=== PATIENT | female | born 1965 | race African-American/Black ===

== ENCOUNTER 2018-10-21 02:51 | Emergency (ER) | payer BC, OTHER ==
[2018-10-21] MEDS ORDERED: NORMAL SALINE 1000 ML 1,000 ML IV ONE (04:04)
--- NOTE | 2018-10-21 04:06 | ER Document Report ---
ED GI/ - General TRAVEL OUTSIDE OF THE [place] IN LAST 30 DAYS: No <YENI SANTIAGO - Last Filed: 10/21/18 06:36> <JUNIE GERMAN - Last Filed: 10/21/18 08:18> - General Chief Complaint: Abdominal Pain Stated Complaint: ABDOMINAL PAIN Time Seen by Provider: 10/21/18 03:57 Notes: Patient is a 53-year-old female that comes emergency department for chief complaint of abdominal pain, worse in the lower abdomen. Symptoms started several hours ago tonight, she states she vomited from the pain. She denies chest pain, flank pain, fever or chills, dysuria, vaginal bleeding. She states her only medical history is anemia, on iron. She has had 3 C-sections. Denies medical history otherwise. Denies smoking, alcohol, recreational drugs. Daughter at bedside. (YENI SANTIAGO) - Related Data Allergies/Adverse Reactions: No Known Allergies Allergy (Verified 07/22/13 09:31) Past Medical History - General Information source: Patient - Social History Smoking Status: Never Smoker Frequency of alcohol use: None Lives with: Family Family History: Reviewed & Not Pertinent - Past Medical History Cardiac Medical History: Reports: Hx DVT Pulmonary Medical History: Denies: Hx Tuberculosis Past Surgical History: Reports: Hx Section - x3 - Immunizations Hx Diphtheria, Pertussis, Tetanus Vaccination: Yes <YENI SANTIAGO - Last Filed: 10/21/18 06:36> Review of Systems - Review of Systems Constitutional: No symptoms reported EENT: No symptoms reported Cardiovascular: No symptoms reported Respiratory: No symptoms reported Gastrointestinal: See HPI Genitourinary: See HPI Female Genitourinary: No symptoms reported Musculoskeletal: No symptoms reported Skin: No symptoms reported Hematologic/Lymphatic: No symptoms reported Neurological/Psychological: No symptoms reported <YENI SANTIAGO - Last Filed: 10/21/18 06:36> Physical Exam <YENI SANTIAGO - Last Filed: 10/21/18 06:36> - Vital signs Vitals: Temp Pulse Resp BP Pulse Ox 98.1 F 72 18 103/63 99 10/21/18 03:19 10/21/18 03:19 10/21/18 03:19 10/21/18 03:19 10/21/18 03:19 - Notes Notes: GENERAL: Patient quiet, does not like interacting, keeping her eyes closed, stating she is uncomfortable HEAD: Normocephalic, atraumatic. EYES: Pupils equal, round, and reactive to light. Extraocular movements intact. ENT: Oral mucosa moist, tongue midline. Oropharynx unremarkable. Airway patent. Nares patent, no nasal septal hematoma, TM's intact. NECK: Full range of motion. Supple. Trachea midline. LUNGS: Clear to auscultation bilaterally, no wheezes, rales, or rhonchi. No respiratory distress. HEART: Regular rate and rhythm. No murmur ABDOMEN: There is some generalized tenderness over the abdomen, this is lower quadrant and pelvic area with patient wincing with palpation of this area. Abdomen is soft otherwise, no distention, no rigidity GENITOURINARY: Deferred EXTREMITIES: Moves all 4 extremities spontaneously. No edema, normal radial and dorsalis pedis pulses bilaterally. No cyanosis. BACK: no cervical, thoracic, lumbar midline tenderness. No saddle anesthesia, normal distal neurovascular exam. NEUROLOGICAL: Alert and oriented x3. Normal speech. [cranial nerves II through XII grossly intact]. PSYCH: Slightly flat affect SKIN: Warm, dry, normal turgor. No rashes or lesions noted. (YENI SANTIAGO) Course - Laboratory Result Diagrams: 10/21/18 04:20 10/21/18 04:20 <YENI SANTIAGO - Last Filed: 10/21/18 06:36> - Laboratory Result Diagrams: 10/21/18 04:20 10/21/18 04:20 <JUNIE GERMAN - Last Filed: 10/21/18 08:18> - Re-evaluation Re-evalutation: Patient has a flat affect, difficult historian, she does have mild generalized tenderness, this is significantly worse in the right abdomen to pelvic area. Abdomen is not rigid. Vital signs unremarkable. CBC unremarkable, chemistry unremarkable, urinalysis other than trace leukocyte esterase. Patient reports to me she is currently on nitrofurantoin. CAT scan showing 4.1 cm right-sided ovarian cyst. Appendix visualized as normal. Based on her vomiting, pain, discussed with patient, recommended ultrasound ultrasound to rule out torsion, patient states agreement with plan. Patient had declined morphine, requested Tylenol instead which she was provided with, she was given nausea medication and IV fluids, she declines Toradol at this time. (YENI SANTIAGO) 10/21/18 07:10 I received report from ZEKE Tolbert. The patient was a ultrasound during the time of handoff. 10/21/18 08:11 The patient has a 4.1 cm adnexal cyst, consistent with the CT she had earlier. I spoke with Dr. Miranda, the AUTOMAT WATCHER on-call in regards to the findings on ultrasound, Dr. Miranda would like to see the patient as outpatient. I have discussed this with the patient. She verbalized understanding. She will also be sent home on instructions for MiraLAX to help with her constipation. Verbal discharge instructions were given to the patient. They verbalized understanding. They are stable for discharge. (JUNIE GERMAN) - Vital Signs Vital signs: Temp Pulse Resp BP Pulse Ox 98.1 F 72 18 103/63 99 10/21/18 03:19 10/21/18 03:19 10/21/18 03:19 10/21/18 03:19 10/21/18 03:19 - Laboratory Laboratory results interpreted by me: 10/21/18 10/21/18 04:20 04:20 RDW 16.0 H Seg Neutrophils % 86.9 H Lymphocytes % 5.3 L Absolute Lymphocytes 0.4 L Urine Urobilinogen 2.0 H Ur Leukocyte Esterase TRACE H Discharge <YENI SANTIAGO - Last Filed: 10/21/18 06:36> <JUNIE GERMAN - Last Filed: 10/21/18 08:18> - Discharge Clinical Impression: Abdominal pain Qualifiers: Abdominal location: right lower quadrant Qualified Code(s): R10.31 - Right lower quadrant pain Constipation Qualifiers: Constipation type: unspecified constipation type Qualified Code(s): K59.00 - Constipation, unspecified Condition: Stable Instructions: Abdominal Pain ([facility]) Additional Instructions: You were seen today in the emergency department for abdominal pain. You have a cyst in your pelvic area. Please follow-up with [facility] in regards to the cyst. You may also take MiraLAX, 1 capful every day for your constipation. You can increase or decrease the amount of MiraLAX to take based off your bowel movements. You have been given Zofran, medication for nausea. May take 1 tablet every 4-6 hours as needed for nausea or vomiting. You can take Tylenol or ibuprofen for your pain. If you develop worsening abdominal pain, develop a fever greater than 100.4 F, have worsening symptoms, or have any symptoms that are worrisome to you, please return to the emergency department. Referrals: [facility] [Provider Group] - Follow up in 3-5 days
[2018-10-21 04:28] LABS: ABSOLUTE LYMPHOCYTES (AUTO) 0.4 10^3/uL (0.5-4.7); ABSOLUTE MONOCYTES (AUTO) 0.5 10^3/uL (0.1-1.4); ABSOLUTE NEUT (AUTO) 6.2 10^3/uL (1.7-8.2); BASOPHILS % (AUTO) 0.6 % (0-2); EOSINOPHILS % (AUTO) 0.1 % (0-6); HEMOGLOBIN 14.6 g/dL (12.0-15.5); LYMPHOCYTES % (AUTO) 5.3 % (13-45); MEAN CORPUSCULAR HGB CONC 34.8 g/dL (32.0-36.0); MEAN CORPUSCULAR VOLUME 86 fl (80-97); MONOCYTES % (AUTO) 7.1 % (3-13); PLATELET COUNT 346 10^3/uL (150-450); RED BLOOD COUNT 4.86 10^6/uL (3.72-5.28); SEGMENTED NEUTROPHILS % (AUTO) 86.9 % (42-78); TOTAL CELLS COUNTED % (AUTO) 100 %; WHITE BLOOD COUNT 7.1 10^3/uL (4.0-10.5)
[2018-10-21] MEDS: ONDANSETRON HCL INJ/PF 4 MG/2 ML SDV IV ONE ×2 (04:30→04:37)
[2018-10-21] MEDS: MORPHINE SULFATE 10 MG/ML INJ IV ONE ×2 (04:30→04:37)
[2018-10-21] MEDS ORDERED: ACETAMINOPHEN 325 MG TABLET PO ONE (04:35)
[2018-10-21 04:40] LABS: ALANINE AMINOTRANSFERASE 25 U/L (9-52); ALBUMIN 4.1 g/dL (3.5-5.0); ALKALINE PHOSPHATASE 105 U/L (38-126); ANION GAP 12 (5-19); ASPARTATE AMINO TRANSFERASE 18 U/L (14-36); BILIRUBIN,DIRECT 0.2 mg/dL (0.0-0.4); BILIRUBIN,TOTAL 0.3 mg/dL (0.2-1.3); BLOOD UREA NITROGEN 15 mg/dL (7-20); CALCIUM 9.3 mg/dL (8.4-10.2); CARBON DIOXIDE 25 mmol/L (22-30); CHLORIDE 105 mmol/L (98-107); GLUCOSE 108 mg/dL (75-110); LIPASE 116.7 U/L (23-300); POTASSIUM 4.3 mmol/L (3.6-5.0); SODIUM 142.3 mmol/L (137-145); TOTAL PROTEIN 7.2 g/dL (6.3-8.2)
[2018-10-21 04:59] LABS: APPEARANCE,URINE SLIGHTLY-CLOUDY; BILIRUBIN,URINE NEGATIVE (NEGATIVE); GLUCOSE, URINE NEGATIVE (NEGATIVE); KETONES,URINE NEGATIVE (NEGATIVE); LEUKOCYTE ESTERASE,URINE TRACE (NEGATIVE); NITRITE,URINE NEGATIVE (NEGATIVE); PROTEIN,URINE NEGATIVE (NEGATIVE); URINE SPECIFIC GRAVITY 1.017
[2018-10-21 05:01] LABS: COLOR,URINE DARK YELLOW
--- NOTE | 2018-10-21 06:12 | RADIOLOGY REPORT (SQ) ---
CLINICAL HISTORY: abd pain, worst in RLQ COMPARISON: None. 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 FINDINGS: Lower lungs are clear. Abdomen: The liver is normal in appearance. There is no biliary dilatation. Gallbladder is normal in appearance. The pancreas and spleen are normal in appearance. The adrenal glands and kidneys are unremarkable. Abdominal aorta is normal in course and caliber without aneurysm. There is no free air. There is no retroperitoneal adenopathy. Pelvis: There is no bowel obstruction. Urinary bladder is unremarkable. There is trace free pelvic fluid. Uterus is normal in size. Right ovarian cyst measures 4.1 cm. Appendix is normal. Skeleton: There are no acute osseous findings. No suspicious bony lesions. IMPRESSION: Small right ovarian cyst. No definite acute inflammatory process.
--- NOTE | 2018-10-21 07:46 | RADIOLOGY REPORT (SQ) ---
EXAM DESCRIPTION: US TRANSVAGINAL COMPLETED DATE/TME: 10/21/2018 06:26 CLINICAL HISTORY: 53 years Female, RLQ pain, vomiting, eval ovary Comparison: CT, same day. Technique: Transvaginal. LIMITATIONS: None. FINDINGS: 10-cm uterus, 0.35-cm endometrial stripe thickness, 3.5-cm cervical length, 5.3 x 3.3 x 4.9-cm right ovary with right adnexal 4.1 x 2.8 x 3.7 cm simple cystic lesion, and 2.8-cm left ovary appear otherwise unremarkable in size, shape, echotexture, and vascularity. No free fluid. IMPRESSION: 1. A 4.1 cm right adnexal cyst considered "almost certainly benign;". Ultrasound follow-up recommended annually. These recommendations are based on current [facility] Best Practices Guidelines. 2. Endometrial atrophy/hypoplasia.
[2018-10-21] MEDS ORDERED: ONDANSETRON ODT 4 MG TAB (6 TAB/ER DISP) PO PRN (08:17)
[2018-10-21 08:36] VITALS: BP 108/61
== END 2018-10-21 08:37 | disposition home or self-care (01) ==
LOC: ER 02:51
DX: K59.00 Constipation, unspecified (principal); R10.31 Right lower quadrant pain; Z86.718 Personal history of other venous thrombosis and embolism
CPT/HCPCS: 99284; 96360; 36415; 83605; 83690; 85025; 80053; 81001; 76830; 93976; 74177; J7030; J2270; J2405